=== PATIENT | male | born 1985 | race Caucasian/White ===

== ENCOUNTER 2018-02-06 12:03 | Emergency (ER) | payer OTHER | END 2018-02-06 14:48 | disposition home or self-care (01) | LOC: M ED 12:03 | DX: S16.1XXA Strain of muscle, fascia and tendon at neck level, initial encounter (principal); V49.49XA Driver injured in collision with other motor vehicles in traffic accident, initial encounter; Y92.410 Unspecified street and highway as the place of occurrence of the external cause | CPT/HCPCS: 72125 ==

== ENCOUNTER → 2018-08-17 | Outpatient (CLI) | payer OTHER ==
[2018-08-17 13:38] LABS: ANION GAP 3 MEQ/L (8-16); BLOOD UREA NITROGEN 12 MG/DL (7-18); CALCIUM LEVEL 8.5 MG/DL (8.5-10.1); CARBON DIOXIDE LEVEL 30 MEQ/L (21-32); CHLORIDE LEVEL 108 MEQ/L (98-107); CREATININE FOR GFR 1.11 MG/DL (0.70-1.30); GLOMERULAR FILTRATION RATE > 60.0 (>60); GLUCOSE, FASTING 78 MG/DL (70-100); POTASSIUM SERUM 4.1 MEQ/L (3.5-5.1); SODIUM LEVEL 141 MEQ/L (136-145); THYROID STIMULATING HORMONE 0.857 uIU/ML (0.358-3.740)
== END ==
LOC: M LAB 12:36
DX: R00.2 Palpitations (principal)